=== PATIENT | male | born 1975 | race Caucasian/White ===

== ENCOUNTER 2020-10-17 16:33 | Emergency (ER) | payer SELFPAY ==
--- OUTSIDE RECORDS SUMMARY | 2020-10-17 16:36 | XMS REPORT | Continuity of Care Document ---
:1975 Author Organization [facility] t Address [address] [place] [address] [place] [id number] Care Team Providers Name Role Phone Devorah CAMARGO Attending Clinician Unavailable TIFFANIE Attending Clinician Unavailable Harley Rodriguez Attending Clinician Elizabeth Salinas DO Attending Clinician Dianna Cabrera Attending Clinician Payers Payer Name Policy Type Policy Number Effective Date Expiration Date Dianna alcazar [facility] [id number] 2020 [facility] SELF-PAYSELF- 00:00:00 PAY UNSCREENEDxxx [id number] [place] [address] Problems Condition Condition Condition Status Onset Resolution Last Treating Co mments Source Name Details Category Date Date Treatment Clinician Date Psychosis Psychosis Disease Active [facility] Health Mood Mood Disease Active [facility] disorder disorder Health Allergies, Adverse Reactions, Alerts This patient has no known allergies or adverse reactions. Social History Social Habit Start Date Stop Date Quantity Comments Source Sex Assigned At [facility] Health Medications Ordered Filled Start Stop Current Ordering Indication Dosage Frequency Signature Comments Components Source Medication Medication Date Date Medication? Clinician (SIG) Name Name FLUoxetine Yes Psychosis, 20mg QD Take 1 [facility] (PROZAC) 20 4-20 unspecified capsule by [facility] mg capsule 00:00: psychosis mouth 00 type daily. QUEtiapine Yes Psychosis, 100mg Take 1 Pratik (SEROQUEL) 4-20 unspecified tablet by [facility] 100 mg 00:00: psychosis mouth at tablet 00 type bedtime nightly. Vital Signs Vital Name Observation Time Observation Value Comments Source Systolic blood pressure 2020-08-17 07:00:00 125 mm[Hg] [facility] Diastolic blood pressure 2020-08-17 07:00:00 95 mm[Hg] [facility] Heart rate 2020-08-17 07:00:00 91 /min [place] [facility] Body temperature 2020-08-17 07:00:00 37 Clementina Abiodun is [facility] Respiratory rate 2020-08-17 07:00:00 17 /min Abiodun is [facility] Oxygen saturation in 2020-08-17 07:00:00 99 /min [facility] Arterial blood by Pulse oximetry Procedures Procedure Date / Time Performed Performing Clinician [facility] e CONSULT CLINICAL CASE 2020-08-17 09:04:51 Bulmaro Ghosh [facility] MANAGEMENT (RN/SW) 12 LEAD EKG 2020-08-16 18:08:10 [facility] SARS-COV-2, FLU A/B, RSV 2020-08-16 17:53:00 Bulmaro tushar [facility] CORONAVIRUS, COVID-19, JENNA 2020-08-16 17:53:00 [facility]ushar [facility] CBC/DIFF 2020-08-16 17:52:00 Bulmaro tushar [facility] BASIC METABOLIC PANEL 2020-08-16 17:52:[facility] CBC 2020-08-16 17:52:00 [facility] Plan of Care Planned Activity Planned Date Details Comments Source Future Scheduled Test 2021-01-28 00:00:00 IMM Influenza [facility] Seasonal Jan to June (>/= 19 yrs) [code = IMM Influenza Seasonal Jan to June (>/= 19 yrs)] Future Scheduled Test 1989 00:00:00 COVID-19 Vaccine (1) [facility] [code = COVID-19 Vaccine (1)] Encounters Start End Encounter Admission Attending Care Care Encounter Source Date/Time Date/Time Type Type Clinicians Facility Department ID 2020-08-26 2020-08-26 Outpatient [facility] [id number] [place] 00:00:00 00:00:00 [facility] 2020-08-16 2020-08-17 Emergency LISA MORENO [facility] [id number] [place] 13:13:00 11:55:00 Health 2020-05-19 2020-05-19 Emergency Celis, [facility] [id number] 17:56:00 18:45:00 Daisy Dan [id number] [place] [id number] [place] [id number] 2020-05-18 2020-05-18 Emergency [facility] [id number] 17:52:00 19:15:00 Lucy Dan [id number] [place] [id number] [place] [id number] 2019-12-16 2019-12-16 Emergency [facility] [id number] 10:37:00 11:42:00 Pepper [place] [id number] [place] [id number] [place] [id number] Results Test Description Test Time Test Comments Results Result Comments Source Coronavirus, CoVID-19, JENNA 2020-08-16 23:01:00 Test Item Value Reference Range Interpretation Comme nts COVID-19 (SARS-COV-2) Not Detected Not Detected INTERP RETATION: No (test code = 47343-4) detect able levels of SARS-CoV-2 Tommie navirus (COVID-19) were present in this patient 's sample by this test. A not detected result does not exclude the pos sibility of active infec tion with this virus due to other factors that ma y affect the results suc h as a poorly collecte d sample, viral titers be low the limit of detect ion of the assay, and the infrequent poss ibility of inhibitors i n the sample. This re sult should be inter preted in conjunction wit h clinical, radio graphic, and other labor atory findings and sh ould not be used as the sole indicator of ac tive infection with SARS-CoV-2 Tommie navirus (COVID-19). ALESSANDRA (test code = ALESSANDRA) COMMENT: This Hologic Aptima SARS-CoV-2 molecular diagnostic assay utilizes Reinforcer Mediated Amplification (TMA) technology to rapidly detect the SARS-CoV-2 (COVID-19) virus from respiratory samples. In accordance with the FDA's guidance document "Policy for Diagnostic Tests for Coronavirus Disease-2019 during the Public Health Emergency", this test was developed, and its performance characteristics were verified by the [facility] molecular diagnostics laboratory and is authorized for clinical diagnostic use. This laboratory is certified under the Clinical Laboratory Improvement Amendments (CLIA) as qualified to perform high complexity clinical laboratory testing. Lab Interpretation (test Normal code = 75126-0) [facility] Metabolic [id number] 18:50:00 Test Item Value Reference Range Interpretation Comments Sodium (test code = 139 mmol/L 285-010 1612-2) Potassium (test code = 4.2 mmol/L 3.5-5.1 2823-3) Chloride (test code = 103 mmol/L 98-107 2075-0) CO2 (test code = 28 mmol/L 21-31 96621259) Urea Nitrogen (test 17.0 mg/dL 7-25 code = 51509810) Creatinine (test code = 0.9 mg/dL 0.7-1.3 98077588) Glucose (test code = 106 mg/dL 70-110 65879484) Calcium (test code = 8.8 mg/dL 8.6-10.3 77495660) eGFR If non- Am >90 See_Comment [Aut omated message] (test code = 00043739) The s ystem which generated this result transmit nina reference range : >=90 mL/min/1.7 3 m2. The reference r sage was not used to interpret this result as normal/abnormal . Anion Gap (test code = 8 mmol/L 5-16 61396741) Lab Interpretation Normal (test code = 70945-3) [facility]/[id number] 18:24:00 Test Item Value Reference Range Interpretation Comments WBC (test code = 6690-2) 6.2 K/uL 4.5-12 RBC (test code = 789-8) 4.23 See_Comment L [Au tomated message] The system Voter Gravity[employer] h generated this result transmit nina reference range : 4.60 - 6.20 M/u L. The reference r sage was not used to interpret this result as normal/abnormal . Hemoglobin (test code = 13.0 g/dL 14-18 L 718-7) Hematocrit (test code = 36.7 % 40-54 L 4544-3) MCV (test code = 787-2) 86.8 fL 82-92 MCH (test code = 785-6) 30.7 pg 27-31 MCHC (test code = 786-4) 35.4 g/dL 32-36 RDW (test code = 39.1 fL 35.1-43.9 66841-5) Platelet (test code = 283 K/uL 150-400 777-3) Mean Platelet Volume 9.8 fL 9.4-12.4 (test code = 95790-7) Percent NRBC (test code 0.0 % = 20498574) Neutrophil (test code = 41.6 % 34-67.9 770-8) Lymphs (test code = 44.4 % 21.8-50 736-9) Monocytes (test code = 8.7 % 5.3-12 5905-5) Eos (test code = 713-8) 3.9 % 0.8-5 Basos (test code = 1.1 % 0.2-1.2 706-2) Immature Granulocytes 0.3 % 0-0.5 (test code = 42781649) Neutrophils (Absolute) 2.59 K/uL 1.78-5.36 (test code = 44428681) Lymphs (Absolute) (test 2.76 K/uL 1.32-3.57 code = 82155467) Monocytes(Absolute) 0.54 K/uL 0.3-0.82 (test code = 59799933) Eos (Absolute) (test 0.24 K/uL 0.04-0.54 code = 07989109) Baso (Absolute) (test 0.07 K/uL 0.01-0.08 code = 22288133) Immature Grans (Abs) 0.02 K/uL 0-0.03 (test code = 41082071) Absolute NRBC (test code 0.00 K/uL = 33656250) Lab Interpretation (test Abnormal code = 52531-3) [place] [address] LEAD [id number] 18:08:1012 LEAD EKG FOR [facility] Test Date: [id number] Name: DAMIEN KRISHNAMURTHY Department: [id number] ID: [id number] Room: Gender: M 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
[2020-10-17 17:23] LABS: Absolute Lymphocytes (CBC) 2.8 K/uL (0.7-4.9); Basophils % 0.7 % (0-1.3); Hematocrit 35.9 % (39.6-49.0); Lymphocytes % 26.8 % (15.3-44.8); MPV 8.3 fL (7.6-11.3); RBC Red Blood Cell Count 4.02 M/uL (4.33-5.43)
[2020-10-17 17:30] LABS: Protime INR 1.18
[2020-10-17 17:47] LABS: ALT/SGPT 48 U/L (12-78); AST/SGOT 66 U/L (15-37); Albumin 3.2 g/dL (3.4-5.0); Alkaline Phosphatase 65 U/L (45-117); BUN Blood Urea Nitrogen 41 mg/dL (7-18); Bicarbonate 23 mmol/L (21-32); Bilirubin Direct 0.3 mg/dL (0-0.2); Glucose Level 100 mg/dL (74-106); Lipase 82 U/L (73-393); Potassium 3.4 mmol/L (3.5-5.1); Protein, Total 6.4 g/dL (6.4-8.2); Sodium Level 137 mmol/L (136-145); Troponin I 0.02 ng/mL (0.0-0.045)
--- NOTE | 2020-10-17 18:24 | ER ---
Nurse's Notes [facility] Name: Jos Renner Age: 44 yrs Sex: Male : 1975 Arrival Date: 10/17/2020 Time: 16:35 Bed 15 Private MD: Diagnosis: Drug abuse counseling and surveillance Presentation: 10/17 16:46 Chief complaint: EMS states: Bystander spotted patient laying down in a field. PT ss admits to taking 0.5 tablet of his mother's prescribed Vicodin and 100 mg of Seroquel when he is supposed to only take 50 mg. Pt denies SI/ HI but states he has been hearing, seeing and feeling things since he was 4 years old. Pt states that he has been walking and just laid down because his feet hurt. Coronavirus screen: Client denies travel out of the [place] in the last 14 days. Ebola Screen: Patient denies exposure to infectious person. Patient denies travel to an Ebola-affected area in the 21 days before illness onset. Initial Sepsis Screen: Does the patient meet any 2 criteria? No. Patient's initial sepsis screen is negative. Does the patient have a suspected source of infection? No. Patient's initial sepsis screen is negative. Risk Assessment: Do you want to hurt yourself or someone else? Patient reports no desire to harm self or others. Onset of symptoms is unknown. Care prior to arrival: Medication(s) given: Normal saline infusion, 1000 mL, IV initiated. 18 GA, in the left antecubital area, Glucose check: 102. 16:46 Method Of Arrival: EMS: [facility] 16:46 Acuity: CHILO 3 ss Historical: - Allergies: 16:54 No Known Allergies; ss - Home Meds: 16:54 Seroquel Oral [Active]; ss - PMHx: 16:54 Insomnia; ss - PSHx: 16:54 R hand; ss - Immunization history:: Adult Immunizations unknown. - Social history:: Smoking status: Patient reports the use of cigarette tobacco products, smokes one pack cigarettes per day. Patient uses alcohol, only on a social basis. street drugs, cocaine, heroin, marijuana, Methamphetamine (Meth). - Family history:: not pertinent. Screenin:50 Abuse screen: Denies threats or abuse. Nutritional screening: No deficits noted. vg1 Tuberculosis screening: No symptoms or risk factors identified. Fall Risk No fall in past 12 months (0 pts). No secondary diagnosis (0 pts). IV access (20 points). Ambulatory Aid- None/Bed Rest/Nurse Assist (0 pts). Gait- Normal/Bed Rest/Wheelchair (0 pts) Mental Status- Oriented to own ability (0 pts). Total Cesar Fall Scale indicates No Risk (0-24 pts). Assessment: 16:48 General: Appears in no apparent distress. uncomfortable, Behavior is cooperative, vg1 anxious. Pain: Complains of pain in pt states 'whole body' Pain currently is 5 out of 10 on a pain scale. Neuro: Level of Consciousness is awake, alert, obeys commands, Oriented to person, place, time, situation. Cardiovascular: Patient's skin is warm and dry. Respiratory: Airway is patent Respiratory effort is even, unlabored. GI: Reports nausea, Patient currently denies diarrhea, vomiting. : No signs and/or symptoms were reported regarding the genitourinary system. EENT: No signs and/or symptoms were reported regarding the EENT system. Derm: Skin is intact, is healthy with good turgor. Musculoskeletal: Circulation, motion, and sensation intact. 16:48 Reassessment: Pt denies SI and HI. vg1 18:02 Reassessment: Patient appears in no apparent distress at this time. No changes from vg1 previously documented assessment. Patient and/or family updated on plan of care and expected duration. Pain level reassessed. Patient is alert, oriented x 3, equal unlabored respirations, skin warm/dry/pink. 19:30 Reassessment: Patient appears in no apparent distress at this time. No changes from vg1 previously documented assessment. Patient and/or family updated on plan of care and expected duration. Pain level reassessed. Patient is alert, oriented x 3, equal unlabored respirations, skin warm/dry/pink. Vital Signs: 16:46 BP 130 / 87; Pulse 92; Resp 12; Temp 98.9; Pulse Ox 97% on R/A; Weight 72.57 kg; Height ss 5 ft. 11 in. (180.34 cm); Pain 0/10; 16:49 BP 130 / 87; Pulse 90; Resp 18; Pulse Ox 99% on R/A; vg1 17:00 BP 115 / 83; Pulse 88; Resp 12; Pulse Ox 100% on R/A; vg1 18:05 BP 130 / 82; Pulse 88; Resp 18; Pulse Ox 100% on R/A; vg1 19:00 BP 127 / 84; Pulse 90; Resp 18; Pulse Ox 100% on R/A; vg1 16:46 Body Mass Index 22.32 (72.57 kg, 180.34 cm) ED Course: 16:35 Patient arrived in ED. ds1 16:36 Oma Arreaga MD is Attending Physician. ma2 16:44 Deana George RN is Primary Nurse. vg1 16:51 Patient has correct armband on for positive identification. Placed in gown. Bed in low vg1 position. Call light in reach. Side rails up X2. 16:52 Triage completed. ss 16:54 Arm band placed on right wrist. ss 17:08 Maintain EMS IV. Dressing intact. Good blood return noted. Site clean \T\ dry. Gauge \T\ vg 1 site: 18g in Left AC. 19:19 Primary Nurse role handed off by Deana George, SHERMAN mw2 19:22 Deana George RN is Primary Nurse. vg1 19:31 No provider procedures requiring assistance completed. IV discontinued, intact, vg1 bleeding controlled, No redness/swelling at site. Pressure dressing applied. Administered Medications: No medications were administered Outcome: 18:24 Discharge ordered by . ma2 19:31 Discharged to home ambulatory. vg1 19:31 Condition: good 19:31 Discharge instructions given to patient, Instructed on discharge instructions, follow up and referral plans. Demonstrated understanding of instructions, follow-up care. 19:31 Patient left the ED. vg1 Signatures: Silvia Macias ds1 Arlet Ayoub RN RN Oma Arreaga MD MD ma2 Melissa Ramon mw2 Deana George RN RN vg1
--- NOTE | 2020-10-17 18:24 | EDPHYS ---
Physician Documentation [facility] Name: Jos Renner Age: 44 yrs Sex: Male : 1975 Arrival Date: 10/17/2020 Time: 16:35 Bed 15 Private MD: ED Physician Oma Arreaga HPI: 10/17 17:47 This 44 yrs old Male presents to ER via EMS with complaints of Drowsy. ma2 17:47 Onset: The symptoms/episode began/occurred gradually, 2 hour(s) ago. Associated signs ma2 and symptoms: Pertinent negatives: chest pain, delusions, fever. Severity of symptoms: At their worst the symptoms were mild in the emergency department the symptoms are unchanged. The patient has not experienced similar symptoms in the past. The patient has experienced similar episodes in the past. s/p cocain use . Historical: - Allergies: 16:54 No Known Allergies; ss - Home Meds: 16:54 Seroquel Oral [Active]; ss - PMHx: 16:54 Insomnia; ss - PSHx: 16:54 R hand; ss - Immunization history:: Adult Immunizations unknown. - Social history:: Smoking status: Patient reports the use of cigarette tobacco products, smokes one pack cigarettes per day. Patient uses alcohol, only on a social basis. street drugs, cocaine, heroin, marijuana, Methamphetamine (Meth). - Family history:: not pertinent. ROS: 17:47 Constitutional: Negative for fever, chills, and weight loss. ma2 17:47 All other systems are negative. Exam: 17:47 Constitutional: This is a well developed, well nourished patient who is awake, alert, ma2 and in no acute distress. Neck: Trachea midline, no thyromegaly or masses palpated, and no cervical lymphadenopathy. Supple, full range of motion without nuchal rigidity, or vertebral point tenderness. No Meningismus. Chest/axilla: Normal chest wall appearance and motion. Nontender with no deformity. No lesions are appreciated. Cardiovascular: Regular rate and rhythm with a normal S1 and S2. No gallops, murmurs, or rubs. Normal PMI, no JVD. No pulse deficits. Respiratory: Lungs have equal breath sounds bilaterally, clear to auscultation and percussion. No rales, rhonchi or wheezes noted. No increased work of breathing, no retractions or nasal flaring. Abdomen/GI: Soft, non-tender, with normal bowel sounds. No distension or tympany. No guarding or rebound. No evidence of tenderness throughout. Skin: Warm, dry with normal turgor. Normal color with no rashes, no lesions, and no evidence of cellulitis. MS/ Extremity: Pulses equal, no cyanosis. Neurovascular intact. Full, normal range of motion. Neuro: Awake and alert, GCS 15, oriented to person, place, time, and situation. Cranial nerves II-XII grossly intact. Motor strength 5/5 in all extremities. Sensory grossly intact. Cerebellar exam normal. Normal gait. Vital Signs: 16:46 BP 130 / 87; Pulse 92; Resp 12; Temp 98.9; Pulse Ox 97% on R/A; Weight 72.57 kg; Height ss 5 ft. 11 in. (180.34 cm); Pain 0/10; 16:49 BP 130 / 87; Pulse 90; Resp 18; Pulse Ox 99% on R/A; vg1 17:00 BP 115 / 83; Pulse 88; Resp 12; Pulse Ox 100% on R/A; vg1 18:05 BP 130 / 82; Pulse 88; Resp 18; Pulse Ox 100% on R/A; vg1 19:00 BP 127 / 84; Pulse 90; Resp 18; Pulse Ox 100% on R/A; vg1 16:46 Body Mass Index 22.32 (72.57 kg, 180.34 cm) ss MDM: 16:36 Patient medically screened. ma2 17:47 Differential diagnosis: drug withdrawal. depression. Differential diagnosis: drug use. ma2 Data reviewed: vital signs, nurses notes. Counseling: I had a detailed discussion with the patient and/or guardian regarding: the historical points, exam findings, and any diagnostic results supporting the discharge/admit diagnosis, the presence of at least one elevated blood pressure reading (>120/80) during this emergency department visit, the need for outpatient follow up. Response to treatment: the patient's symptoms have markedly improved after treatment. ED course: patient is awake alert talking normally . 10/17 16:37 Order name: Basic Metabolic Panel; Complete Time: 18:22 ma2 10/17 16:37 Order name: CBC with Diff; Complete Time: 17:48 ma2 10/17 16:37 Order name: Hepatic Function; Complete Time: 18:22 [facility] 10/17 16:37 Order name: Lipase; Complete Time: 18:22 [facility] 10/17 16:39 Order name: Troponin (emerg Dept Use Only) [facility] 10/17 16:44 Order name: Acetaminophen [facility] 10/17 16:44 Order name: ETOH Level [facility] 10/17 16:44 Order name: PT-INR [facility] 10/17 16:44 Order name: Ptt, Activated [facility] 10/17 16:44 Order name: Salicylate; Complete Time: 18:22 [facility] 10/17 16:44 Order name: Alcohol Serum/Plasma; Complete Time: 17:48 EDMS 10/17 16:37 Order name: IV Saline Lock; Complete Time: 17:08 [facility] 10/17 16:37 Order name: Labs collected and sent; Complete Time: 17:08 [facility] 10/17 16:37 Order name: EKG - Nurse/Tech; Complete Time: 17:08 [facility] 10/17 16:44 Order name: EKG; Complete Time: 16:44 ri2 10/17 16:44 Order name: Suicide Screening ([place]); Complete Time: 17:08 [facility] 10/17 16:44 Order name: Protime (+INR); Complete Time: 17:48 EDMS 10/17 16:44 Order name: PTT, Activated Partial Thromb; Complete Time: 17:48 EDMS 10/17 17:17 Order name: Troponin I; Complete Time: 18:22 EDMS 10/17 17:17 Order name: Acetaminophen Level; Complete Time: 18:22 EDMS Administered Medications: No medications were administered Disposition: 10/17/20 18:24 Discharged to Home. Impression: Drug abuse counseling and surveillance. - Condition is Fair. - Discharge Instructions: What You Need To Know About Illegal Drug Use and Dependence, Youth. - Medication Reconciliation Form, Thank You Letter, Antibiotic Education, Prescription Opioid Use form. - Follow up: Private Physician; When: Tomorrow; Reason: If symptoms return, Continuance of care. Signatures: Dispatcher [employer] EDMS Arlet Ayoub RN RN ss Oma Arreaga MD MD ri2 Deana George RN RN 1 Corrections: (The following items were deleted from the chart) 17:17 16:40 Troponin (Emerg Dept Use Only) ordered. EDMS EDMS 17:17 16:44 Acetaminophen Level ordered. EDNJ EDMS 19:31 18:24 10/17/2020 18:24 Discharged to Home. Impression: Drug abuse counseling and vg1 surveillance. Condition is Fair. Forms are Medication Reconciliation Form, Thank You Letter, Antibiotic Education, Prescription Opioid Use. Follow up: Private Physician; When: Tomorrow; Reason: If symptoms return, Continuance of care. ma2
[2020-10-17 19:45] VITALS: TEMP 98.9
[2020-10-17 19:48] VITALS: O2SAT 100
[2020-10-17 19:52] VITALS: BP 127/84
--- NOTE | 2020-10-18 08:24 | EKG ---
Test Date: 2020-10-17 Test Time: 16:59:23 Mediation Commissioner: KIM MEASUREMENT RESULTS: Intervals: Rate: 88 TN: 132 QRSD: 104 QT: 394 QTc: 476 [place]: P: 78 TN: 132 QRS: 87 T: 57 INTERPRETIVE STATEMENTS: Normal sinus rhythm Normal ECG No previous ECG available for comparison Electronically Signed On 10-18-20 08:22:59 CDT by Foster Owusu
== END 2020-10-17 19:31 | disposition home or self-care (01) ==
LOC: ER 16:33
DX: R40.0 Somnolence (principal); Z71.51 Drug abuse counseling and surveillance of drug abuser; F17.210 Nicotine dependence, cigarettes, uncomplicated
CPT/HCPCS: 36415; 80048; 80076; 80320; 80329; 83690; 84484; 85025; 85610; 85730; 93005; 99283

== ENCOUNTER 2020-10-18 12:07 | Emergency (ER) | payer SELFPAY ==
--- OUTSIDE RECORDS SUMMARY | 2020-10-18 12:10 | XMS REPORT | Continuity of Care Document ---
:1975 Author Organization [facility] t Address [address] [place] [address] Care Team Providers Name Role Phone Devorah CAMARGO Attending Clinician Unavailable TIFFANIE Attending Clinician Unavailable Harley Rodriguez Attending Clinician Elizabeth Salinas DO Attending Clinician Sisi PATHAK S Attending Clinician Payers Payer Name Policy Type Policy Number Effective Date Expiration Date S ottoniel [facility] [id number] 2020 Christie Wesabe SELF-PAYSELF- 00:00:00 PAY UNSCREENEDxxx [id number] [phone] [place] [address] Problems Condition Condition Condition Status Onset Resolution Last Treating Co mments Source Name Details Category Date Date Treatment Clinician Date Psychosis Psychosis Disease Active [facility] Mood Mood Disease Active Christie disorder disorder [...] FLUoxetine Yes Psychosis, 20mg QD Take 1 eblizz (PROZAC) 20 4-20 unspecified capsule by [facility] mg capsule 00:00: psychosis mouth 00 type daily. QUEtiapine Yes Psychosis, 100mg Take 1 eblizz (SEROQUEL) 4-20 unspecified tablet by [facility] 100 mg 00:00: psychosis mouth at tablet 00 type bedtime nightly. Vital Signs Vital Name Observation Time Observation Value Comments Source Systolic blood pressure 2020-08-17 07:00:00 125 mm[Hg] [facility] Diastolic blood pressure 2020-08-17 07:00:00 95 mm[Hg] [facility] Heart rate 2020-08-17 07:00:00 91 /min [place] Anjana ealt Body temperature 2020-08-17 07:00:00 37 Clementina Abiodun is [facility] Respiratory rate 2020-08-17 07:00:00 17 /min Abiodun is [facility] Oxygen saturation in 2020-08-17 07:00:00 99 /min [facility] Arterial blood by Pulse oximetry Procedures Procedure Date / Time Performed Performing Clinician [facility] e CONSULT CLINICAL CASE 2020-08-17 09:04:51 Bulmaro Ghosh [facility] MANAGEMENT (RN/SW) 12 LEAD EKG 2020-08-16 18:08:10 Bulmaro Ghosh [facility] SARS-COV-2, FLU A/B, RSV 2020-08-16 17:53:00 Bulmaro tushar [facility] CORONAVIRUS, COVID-19, JENNA 2020-08-16 17:53:00 [facility] CBC/DIFF 2020-08-16 17:52:00 Bulmaro tushar [facility] BASIC METABOLIC PANEL 2020-08-16 17:52:00 Bulmaro tushar [facility] CBC 2020-08-16 17:52:00 [facility] Plan of Care Planned Activity Planned Date Details Comments Source Future Scheduled Test 2021-01-28 00:00:00 IMM Influenza [facility] Seasonal Jan to June (>/= 19 yrs) [code = IMM Influenza Seasonal Jan to June (>/= 19 yrs)] Future Scheduled Test 1989 00:00:00 COVID-19 Vaccine (1) [facility] [code = COVID-19 Vaccine (1)] Encounters Start End Encounter Admission Attending Care Care Encounter Source Date/Time Date/Time Type Type Clinicians Facility Department ID 2020-08-26 2020-08-26 Outpatient MARY JO [facility] [id number] [place] 00:00:00 00:00:00 [facility] 2020-08-16 2020-08-17 Emergency LISA MORENO [facility] [id number] [place] 13:13:00 11:55:00 Health 2020-05-19 2020-05-19 Emergency Celis, [facility] [id number] 17:56:00 18:45:00 Daisy Dan [id number] [place] [id number] [place] [address] [id number] 2020-05-18 2020-05-18 [facility] [id number] 17:52:00 19:15:00 Lucy Dan [id number] [place] [id number] [place] [address] [id number] 2019-12-16 2019-12-16 Emergency [facility] [id number] 10:37:00 11:42:00 Pepper Dan [id number] [place] [id number] [place] [address] [id number] Results Test Description Test Time Test Comments Results Result Comments Source Coronavirus, CoVID-19, JENNA 2020-08-16 23:01:00 Test Item Value Reference Range Interpretation Comme nts COVID-19 (SARS-COV-2) Not Detected Not Detected INTERP RETATION: No (test code = 16989-4) detect able levels of SARS-CoV-2 Tommie navirus [...] Hologic Aptima SARS-CoV-2 molecular diagnostic assay utilizes Candy Vendor Mediated Amplification (TMA) technology to rapidly detect the SARS-CoV-2 (COVID-19) virus from respiratory samples. In accordance with the FDA's guidance document "Policy for Diagnostic Tests for Coronavirus Disease-2019 during the Public Health Emergency", this test was developed, and its performance characteristics were verified by the [facility] molecular diagnostics laboratory and is authorized for clinical diagnostic use. This laboratory is certified under the Clinical Laboratory Improvement Amendments (CLIA) as qualified to perform high complexity clinical laboratory testing. Lab Interpretation (test Normal code = 55310-1) [facility] Metabolic [id number] 18:50:00 Test Item Value Reference Range Interpretation Comments Sodium (test code = 139 mmol/L 289-674 9161-2) Potassium (test code = 4.2 mmol/L 3.5-5.1 2823-3) Chloride (test code = 103 mmol/L 98-107 2075-0) CO2 (test code = 28 mmol/L 21-31 41464963) Urea Nitrogen (test 17.0 mg/dL 7-25 code = 81109386) Creatinine (test code = 0.9 mg/dL 0.7-1.3 77533249) Glucose (test code = 106 mg/dL 70-110 28064124) Calcium (test code = 8.8 mg/dL 8.6-10.3 28662567) eGFR If non- Am >90 See_Comment [Aut omated message] (test code = 78141507) The s ystem which generated this result transmit nina reference range : >=90 mL/min/1.7 3 m2. The reference r sage was not used to interpret this result as normal/abnormal . Anion Gap (test code = 8 mmol/L 5-16 94083815) Lab Interpretation Normal (test code = 44821-1) [facility][id number] 18:24:00 Test Item Value Reference Range Interpretation Comments WBC (test code = 6690-2) 6.2 K/uL 4.5-12 RBC (test code = 789-8) 4.23 See_Comment L [Au tomated message] The system Aleaic h generated this result transmit nina reference [...] RDW (test code = 39.1 fL 35.1-43.9 63561-1) Platelet (test code = 283 K/uL 150-400 777-3) Mean Platelet Volume 9.8 fL 9.4-12.4 (test code = 13030-9) Percent NRBC (test code 0.0 % = 75442133) Neutrophil (test code = 41.6 % 34-67.9 770-8) Lymphs (test code = 44.4 % 21.8-50 736-9) Monocytes (test code = 8.7 % 5.3-12 5905-5) Eos (test code = 713-8) 3.9 % 0.8-5 Basos (test code = 1.1 % 0.2-1.2 706-2) Immature Granulocytes 0.3 % 0-0.5 (test code = 97323503) Neutrophils (Absolute) 2.59 K/uL 1.78-5.36 (test code = 66433002) Lymphs (Absolute) (test 2.76 K/uL 1.32-3.57 code = 33747713) Monocytes(Absolute) 0.54 K/uL 0.3-0.82 (test code = 32358754) Eos (Absolute) (test 0.24 K/uL 0.04-0.54 code = 06962122) Baso (Absolute) (test 0.07 K/uL 0.01-0.08 code = 46555234) Immature Grans (Abs) 0.02 K/uL 0-0.03 (test code = 47506934) Absolute NRBC (test code 0.00 K/uL = 64734726) Lab Interpretation (test Abnormal code = 77321-3) [place] [address] LEAD [id number] 18:08:1012 LEAD EKG FOR [facility] Test Date: [id number] Name: DAMIEN KRISHNAMURTHY Department: [id number] ID: [id number] Room: Gender: M Camp Coordinator: [id number] MISTYDOB: 1975 Requested By: PHAN Prattder Number: [id number] Reading MD: Natalie Salter MeasurementsIntervals [place] Rate: 74 P: 75PR: 145 QRS: 87QRSD: 105 T: 76QT: 375 QTc: 417 Interpretive StatementsSINUS Gwendolyn [facility] WITH SINUS ARRHYTHMIAElectronically Signed On 08-16-2020 18:38:03 CDT by [facility]
[2020-10-18 12:58] LABS: Absolute Lymphocytes (CBC) 2.2 K/uL (0.7-4.9); Basophils % 0.6 % (0-1.3); Hematocrit 34.9 % (39.6-49.0); Lymphocytes % 27.9 % (15.3-44.8); MPV 8.5 fL (7.6-11.3)
[2020-10-18 13:02] LABS: Protime INR 1.06
[2020-10-18] MEDS ORDERED: NA CHLORIDE 0.9% 1,000 ML ONE (13:07)
[2020-10-18 13:32] LABS: ALT/SGPT 64 U/L (12-78); AST/SGOT 92 U/L (15-37); Albumin 3.4 g/dL (3.4-5.0); Alkaline Phosphatase 58 U/L (45-117); BUN Blood Urea Nitrogen 23 mg/dL (7-18); Bicarbonate 27 mmol/L (21-32); Bilirubin Direct 0.2 mg/dL (0-0.2); Bilirubin Total 0.7 mg/dL (0.2-1.0); Glucose Level 97 mg/dL (74-106); Potassium 3.9 mmol/L (3.5-5.1); Protein, Total 6.4 g/dL (6.4-8.2); Sodium Level 137 mmol/L (136-145)
[2020-10-18 14:38] LABS: Urine Blood Negative (Negative); Urine Glucose Negative (Negative); Urine Protein Negative (Negative); Urine Specific Gravity 1.015 (1.005-1.030); Urine pH 5.5 (5.0-7.0)
[2020-10-18 14:59] LABS: Barbiturates NEGATIVE (NEGATIVE); Benzodiazepines NEGATIVE (NEGATIVE); Cocaine NEGATIVE (NEGATIVE); METHAMPHETAM POSITIVE (NEGATIVE); Methadone NEGATIVE (NEGATIVE); Opiates NEGATIVE (NEGATIVE); Phencyclidine NEGATIVE (NEGATIVE); THC Cannibis POSITIVE (NEGATIVE)
--- NOTE | 2020-10-18 15:22 | EDPHYS ---
Physician Documentation [facility] Name: Jos Renner Age: 44 yrs Sex: Male : 1975 Arrival Date: 10/18/2020 Time: 12:13 Bed 18 Private MD: ED Physician Oma Arreaga HPI: 10/18 12:59 This 44 yrs old Male presents to ER via EMS with complaints of Hearing voices.pm1 12:59 Onset: The symptoms/episode began/occurred yesterday. Past psychiatric history: Prior pm1 diagnosis: insomnia, Psychiatric medications include: Seroquel. Associated signs and symptoms: Pertinent positives; hallucinations, substance abuse, Pertinent negatives: homicidal ideation, paranoia, suicide ideation. Severity of symptoms: in the emergency department the symptoms are unchanged Pain is currently a 0 / 10. The patient has been recently seen at the [facility] Emergency Department, yesterday, for similar complaints labs were performed, dx substance abuse. Historical: - Allergies: 12:20 No Known Allergies; iw - Home Meds: 12:20 Seroquel Oral [Active]; iw - PMHx: 12:20 insomnia; iw - PSHx: 12:20 R hand; iw - Immunization history:: Client reports having NOT received the Covid vaccine. - Social history:: Smoking status: Patient reports the use of cigarette tobacco products, smokes one-half pack cigarettes per day, Patient uses alcohol, on a daily basis. street drugs, marijuana, Methamphetamine (Meth). ROS: 12:59 Constitutional: Negative for fever, chills, and weight loss, Cardiovascular: Negative pm1 for chest pain, palpitations, and edema, Respiratory: Negative for shortness of breath, cough, wheezing, and pleuritic chest pain, Abdomen/GI: Negative for abdominal pain, nausea, vomiting, diarrhea, and constipation, Back: Negative for injury and pain, MS/Extremity: Negative for injury and deformity, Skin: Negative for injury, rash, and discoloration, Neuro: Negative for headache, weakness, numbness, tingling, and seizure. 12:59 Psych: Positive for drug dependence, auditory hallucinations, insomnia, Negative for visual hallucinations, suicide gesture, suicidal ideation. 12:59 All other systems are negative. Exam: 12:59 Constitutional: This is a well developed, well nourished patient who is awake, alert, pm1 and in no acute distress. Head/Face: Normocephalic, atraumatic. 12:59 Back: No spinal tenderness. No costovertebral tenderness. Full range of motion. 12:59 Skin: Warm, dry with normal turgor. Normal color with no rashes, no lesions, and no evidence of cellulitis. MS/ Extremity: Pulses equal, no cyanosis. Neurovascular intact. Full, normal range of motion. 12:59 Eyes: Exam is negative for acute changes, Extraocular movements: intact throughout, Conjunctiva: no acute changes, no injection, Sclera: no acute changes, icterus, is not appreciated. 12:59 ENT: Mouth: Lips: normal, Oral mucosa: normal, pink and intact, moist. 12:59 Cardiovascular: Exam negative for acute changes, Rate: normal, Rhythm: regular, Pulses: no pulse deficits are appreciated. 12:59 Respiratory: Exam negative for acute changes, respiratory distress, shortness of breath, Breath sounds: are clear throughout. 12:59 Abdomen/GI: Inspection: abdomen appears normal, Palpation: abdomen is soft and non-tender, in all quadrants. 12:59 Neuro: Exam negative for acute changes, Orientation: is normal, Mentation: is normal, Motor: is normal, moves all fours. Vital Signs: 12:16 BP 142 / 80; Pulse 76; Resp 16 S; Temp 98.6; Pulse Ox 99% on R/A; Weight 70.31 kg; iw Height 5 ft. 11 in. (180.34 cm); 13:23 BP 119 / 77; Pulse 79; Resp 16 S; Pulse Ox 100% on R/A; ca1 14:31 BP 125 / 92; Pulse 61; Resp 16 S; Pulse Ox 100% on R/A; ca1 15:15 BP 130 / 91; Pulse 67; Resp 15 S; Pulse Ox 100% on R/A; ca1 12:16 Body Mass Index 21.62 (70.31 kg, 180.34 cm) iw MDM: 12:18 Patient medically screened. pm1 15:20 Data reviewed: vital signs. Data interpreted: Pulse oximetry: on room air is 100 %. pm1 Interpretation: normal. Counseling: I had a detailed discussion with the patient and/or guardian regarding: the historical points, exam findings, and any diagnostic results supporting the discharge/admit diagnosis, lab results, the need for outpatient follow up, a family practitioner, a psychiatrist, to return to the emergency department if symptoms worsen or persist or if there are any questions or concerns that arise at home. 10/18 12:32 Order name: Acetaminophen pm1 10/18 12:32 Order name: Basic Metabolic Panel pm1 10/18 12:32 Order name: CBC with Diff; Complete Time: 13:04 pm1 10/18 12:32 Order name: ETOH Level; Complete Time: 13:42 pm1 10/18 12:32 Order name: Hepatic Function; Complete Time: 13:42 pm1 10/18 12:32 Order name: PT-INR; Complete Time: 13:04 pm1 10/18 12:32 Order name: Ptt, Activated; Complete Time: 13:04 pm1 10/18 12:32 Order name: Salicylate; Complete Time: 14:11 pm1 10/18 12:32 Order name: Urine Drug Screen; Complete Time: 15:18 pm1 10/18 12:32 Order name: EKG; Complete Time: 12:33 pm1 10/18 12:32 Order name: Acetaminophen Level; Complete Time: 13:42 EDMS 10/18 12:32 Order name: Basic Metabolic Panel; Complete Time: 13:42 EDMS 10/18 14:38 Order name: Urine Dipstick-Ancillary; Complete Time: 14:51 EDMS 10/18 12:32 Order name: EKG - Nurse/Tech; Complete Time: 13:23 pm1 10/18 12:32 Order name: IV Saline Lock; Complete Time: 12:47 pm1 10/18 12:32 Order name: Labs collected and sent; Complete Time: 12:47 pm1 10/18 12:32 Order name: Urine Dipstick-Ancillary (obtain specimen); Complete Time: 14:38 pm1 Administered Medications: 12:47 Drug: NS 0.9% 1000 ml Route: IV; Rate: 1000 ml; Site: right antecubital; ca1 14:00 Follow up: Urine output 400 ml; Response: No adverse reaction; IV Status: Completed ca1 infusion; IV Intake: 1000ml Disposition: 10/18/20 15:22 Discharged to Home. Impression: Other stimulant abuse - methamphetamines, Cannabis abuse. - Condition is Stable. - Discharge Instructions: Cannabis Use Disorder, Stimulant Use Disorder-Methamphetamines. - Medication Reconciliation Form, Thank You Letter, Antibiotic Education, Prescription Opioid Use form. - Follow up: Emergency Department; When: As needed; Reason: Worsening of condition. Follow up: Private Physician; When: 2 - 3 days; Reason: Recheck today's complaints, Continuance of care, Re-evaluation by your physician. - Problem is new. - Symptoms have improved. Signatures: Dispatcher [employer] EDMalu Vazquez RN RN Rob Garces NP DISPUTE RESOLUTION ANALYST pm1 Daisy Gonsalez RN RN ca1 Corrections: (The following items were deleted from the chart) 12:48 12:32 Suicide Screening ([place]) ordered. pm1 ca1 15:52 15:22 10/18/2020 15:22 Discharged to Home. Impression: Other stimulant abuse - ca1 methamphetamines; Cannabis abuse. Condition is Stable. Forms are Medication Reconciliation Form, Thank You Letter, Antibiotic Education, Prescription Opioid Use. Follow up: Emergency Department; When: As needed; Reason: Worsening of condition. Follow up: Private Physician; When: 2 - 3 days; Reason: Recheck today's complaints, Continuance of care, Re-evaluation by your physician. Problem is new. Symptoms have improved. pm1
--- NOTE | 2020-10-18 15:22 | ER ---
Nurse's Notes [facility] Name: Jos Renner Age: 44 yrs Sex: Male : 1975 Arrival Date: 10/18/2020 Time: 12:13 Bed 18 Private MD: Diagnosis: Other stimulant abuse-methamphetamines;Cannabis abuse Presentation: 10/18 12:16 Chief complaint: EMS states: was found in a busy intersection, was stopping traffic, pt iw stated he was trying to get to the hospital for his follow up appointment , was seen here yesterday for drug abuse, pt states he wants to see what's wrong with his head and body , pt denies any drug use in the past three days , drinks daily. Coronavirus screen: At this time, the client does not indicate any symptoms associated with coronavirus-19. Ebola Screen: Patient negative for fever greater than or equal to 101.5 degrees Fahrenheit, and additional compatible Ebola Virus Disease symptoms Patient denies exposure to infectious person. Patient denies travel to an Ebola-affected area in the 21 days before illness onset. No symptoms or risks identified at this time. Initial Sepsis Screen: Does the patient meet any 2 criteria? No. Patient's initial sepsis screen is negative. Does the patient have a suspected source of infection? No. Patient's initial sepsis screen is negative. Risk Assessment: Do you want to hurt yourself or someone else? Patient reports no desire to harm self or others. Onset of symptoms was October 18, 2020. 12:16 Method Of Arrival: EMS: [facility] iw 12:16 Acuity: CHILO 3 iw Historical: - Allergies: 12:20 No Known Allergies; iw - Home Meds: 12:20 Seroquel Oral [Active]; iw - PMHx: 12:20 insomnia; iw - PSHx: 12:20 R hand; iw - Immunization history:: Client reports having NOT received the Covid vaccine. - Social history:: Smoking status: Patient reports the use of cigarette tobacco products, smokes one-half pack cigarettes per day, Patient uses alcohol, on a daily basis. street drugs, marijuana, Methamphetamine (Meth). Screenin:40 Abuse screen: Denies threats or abuse. Denies injuries from another. Nutritional ca1 screening: No deficits noted. Tuberculosis screening: No symptoms or risk factors identified. Fall Risk IV access (20 points). Assessment: 12:40 General: Appears in no apparent distress. comfortable, Behavior is calm, cooperative. ca1 Pain: Denies pain. Neuro: Level of Consciousness is awake, alert, obeys commands, Oriented to person, place, situation. Cardiovascular: Heart tones S1 S2 present Capillary refill < 3 seconds Patient's skin is warm and dry. Respiratory: Airway is patent Respiratory effort is even, unlabored, Respiratory pattern is regular, symmetrical, Breath sounds are clear bilaterally. GI: Abdomen is flat, non-distended, Bowel sounds present X 4 quads. Abd is soft and non tender X 4 quads. : No signs and/or symptoms were reported regarding the genitourinary system. EENT: No signs and/or symptoms were reported regarding the EENT system. Derm: Skin is intact, is healthy with good turgor, Skin is pink, warm \\T\\ dry. Musculoskeletal: Circulation, motion, and sensation intact. Capillary refill < 3 seconds. 13:23 Reassessment: Patient appears in no apparent distress at this time. Patient and/or ca1 family updated on plan of care and expected duration. Pain level reassessed. Patient is alert, oriented x 3, equal unlabored respirations, skin warm/dry/pink. 14:31 Reassessment: Patient appears in no apparent distress at this time. Patient and/or ca1 family updated on plan of care and expected duration. Pain level reassessed. Patient is alert, oriented x 3, equal unlabored respirations, skin warm/dry/pink. 15:15 Reassessment: Patient appears in no apparent distress at this time. Patient is alert, ca1 oriented x 3, equal unlabored respirations, skin warm/dry/pink. 15:49 Reassessment: Pt was not in the room for discharge. Pt left before signing discharge ca1 papers. veterinary assistant technician states, "pt left about 30 mins ago". Vital Signs: 12:16 BP 142 / 80; Pulse 76; Resp 16 S; Temp 98.6; Pulse Ox 99% on R/A; Weight 70.31 kg; iw Height 5 ft. 11 in. (180.34 cm); 13:23 BP 119 / 77; Pulse 79; Resp 16 S; Pulse Ox 100% on R/A; ca1 14:31 BP 125 / 92; Pulse 61; Resp 16 S; Pulse Ox 100% on R/A; ca1 15:15 BP 130 / 91; Pulse 67; Resp 15 S; Pulse Ox 100% on R/A; ca1 12:16 Body Mass Index 21.62 (70.31 kg, 180.34 cm) ED Course: 12:13 Patient arrived in ED. ca1 12:13 Rob Adorno NP is PHCP. pm1 12:13 Oma Arreaga MD is Attending Physician. pm1 12:15 Daisy Gonsalze RN is Primary Nurse. ca1 12:19 Triage completed. iw 12:20 Arm band placed on. iw 12:40 Patient has correct armband on for positive identification. Bed in low position. Call ca1 light in reach. Side rails up X 1. Pulse ox on. NIBP on. Warm blanket given. 12:46 Initial lab(s) drawn, by pr, sent to lab. Inserted saline lock: 20 gauge in right ca1 antecubital area, using aseptic technique. Blood collected. 15:51 No provider procedures requiring assistance completed. Pt left with IV. Notified LJ ca1 by SHERMAN Toribio. Administered Medications: 12:47 Drug: NS 0.9% 1000 ml Route: IV; Rate: 1000 ml; Site: right antecubital; ca1 14:00 Follow up: Urine output 400 ml; Response: No adverse reaction; IV Status: Completed ca1 infusion; IV Intake: 1000ml Intake: 14:00 IV: 1000ml; Total: 1000ml. ca1 Output: 14:00 Urine: 400ml; Total: 400ml. ca1 Outcome: 15:22 Discharge ordered by . pm1 15:51 Discharged to Pt left before discharged papers given and signed ca1 15:51 Condition: stable 15:51 Discharge instructions given to Pt left before discharged instructions and papers given 15:52 Patient left the ED. ca1 Signatures: Malu Salinas RN RN Rob Adorno NP ENGLISH INSTRUCTOR pm1 Daisy Gonsalez RN RN ca1
[2020-10-18 16:01] VITALS: TEMP 98.6
[2020-10-18 16:02] VITALS: O2SAT 100
[2020-10-18 16:04] VITALS: BP 125/92
--- NOTE | 2020-10-19 07:52 | EKG ---
Test Date: 2020-10-18 Test Time: 13:25:27 Table Keeper: SAMY MEASUREMENT RESULTS: Intervals: Rate: 67 NC: 132 QRSD: 110 QT: 430 QTc: 454 Echo: P: 78 NC: 132 QRS: 87 T: 77 INTERPRETIVE STATEMENTS: Normal sinus rhythm Normal ECG Compared to ECG 10/17/2020 16:59:23 No significant changes Electronically Signed On 10-19-20 07:49:09 CDT by Foster Owusu
== END 2020-10-18 15:52 | disposition home or self-care (01) ==
LOC: ER 12:07
DX: F15.10 Other stimulant abuse, uncomplicated (principal); F12.10 Cannabis abuse, uncomplicated; F17.210 Nicotine dependence, cigarettes, uncomplicated; G47.00 Insomnia, unspecified
CPT/HCPCS: 36415; 80048; 80076; 80307; 80320; 80329; 81003; 85025; 85610; 85730; 93005; 96360; 99284; J7030

== ENCOUNTER 2020-11-15 06:31 | Emergency (ER) | payer SELFPAY ==
--- OUTSIDE RECORDS SUMMARY | 2020-11-15 06:33 | XMS REPORT | Continuity of Care Document ---
:1975 Author Organization [facility] t Address [address] [place] [address] Care Team Providers Name Role Phone Devorah CAMARGO Attending Clinician Unavailable TIFFANIE Attending Clinician Unavailable Harley Rodriguez Attending Clinician Elizabeth Salinsa DO Attending Clinician Dianna Cabrera Attending Clinician Payers Payer Name Policy Type Policy Number Effective Date Expiration Date S ottoniel [facility] [id number] 2020 [place] [employer] SELF-PAYSELF- 00:00:00 PAY UNSCREENEDxxx [id number] [phone] [place] [address] Problems Condition Condition Condition Status Onset Resolution Last Treating Co mments Source Name Details Category Date Date Treatment Clinician Date Psychosis Psychosis Disease Active [facility] Mood Mood Disease Active Christie disorder disorder Health Allergies, Adverse Reactions, Alerts This patient has no known allergies or adverse reactions. Social History Social Habit Start Date Stop Date Quantity Comments Source Sex Assigned At [facility] Exposure to SARS-CoV-2 (event) Not sure [facility] Medications Ordered Filled Start Stop Current Ordering Indication Dosage Frequency Signature Comments Components Source Medication Medication Date Date Medication? Clinician (SIG) Name Name FLUoxetine Yes Psychosis, 20mg QD Take 1 EzFlop - A First of Its Kind Flip Flop (PROZAC) 20 4-20 unspecified capsule by [facility] mg capsule 00:00: psychosis mouth 00 type daily. QUEtiapine Yes Psychosis, 100mg Take 1 EzFlop - A First of Its Kind Flip Flop (SEROQUEL) 4-20 unspecified tablet by Health 100 mg 00:00: psychosis mouth at tablet 00 type bedtime nightly. Vital Signs Vital Name Observation Time Observation Value Comments Source Body height 2020-10-20 12:48:00 177.8 cm [facility] Body weight 2020-10-20 12:48:00 72.576 kg [facility] BMI 2020-10-20 12:48:00 22.96 kg/m2 [facility] Systolic blood pressure 2020-10-20 12:37:00 126 mm[Hg] [facility] Diastolic blood pressure 2020-10-20 12:37:00 87 mm[Hg] [facility] Heart rate 2020-10-20 12:37:00 119 /min [facility] Body temperature 2020-10-20 12:37:00 36.89 Clementina Abiodun is [facility] Respiratory rate 2020-10-20 12:37:00 20 /min Abiodun [facility] Oxygen saturation in 2020-10-20 12:37:00 98 /min [facility] Arterial blood by Pulse oximetry Procedures Procedure Date / Time Performed Performing Clinician Sour e CBC/DIFF 2020-10-20 13:34:00 Pablo Espinoza [facility] COMPREHENSIVE METABOLIC 2020-10-20 13:34:00 Pablo Espinoza [facility] PANEL URINALYSIS 2020-10-20 13:34:00 Pablo Espinoza [facility] CBC 2020-10-20 13:34:00 Pablo Espinoza [facility] URINALYSIS 2020-10-20 13:34:00 Pablo Espinoza [facility] 12 LEAD EKG 2020-10-20 12:40:22 Pablo Espinoza [facility] CONSULT CLINICAL CASE 2020-08-17 09:04:51 Phoenix Metcalf [facility] MANAGEMENT (RN/SW) 12 LEAD EKG 2020-08-16 18:08:10 Phoenix Metcalf [facility] SARS-COV-2, FLU A/B, RSV 2020-08-16 17:53:00 Phoenix Metcalf [facility] CORONAVIRUS, COVID-19, JENNA 2020-08-16 17:53:00 Liliana Metcalf [facility] CBC/DIFF 2020-08-16 17:52:00 Phoenix Metcalf [facility] BASIC METABOLIC PANEL 2020-08-16 17:52:00 Phoenix Metcalf [facility] CBC 2020-08-16 17:52:00 Phoenix Metcalf [facility] Plan of Care Planned Activity Planned Date Details Comments Source Future Scheduled Test 2021-01-28 00:00:00 IMM Influenza [facility] Seasonal Jan to June (>/= 19 yrs) [code = IMM Influenza Seasonal Jan to June (>/= 19 yrs)] Future Scheduled Test 1989 00:00:00 COVID-19 Vaccine (1) [facility] [code = COVID-19 Vaccine (1)] Encounters Start End Encounter Admission Attending Care Care Encounter Source Date/Time Date/Time Type Type Clinicians Facility Department ID 2020-10-20 2020-10-20 [facility] [id number] [place] 12:36:00 20:34:00 [facility] 2020-08-26 2020-08-26 [id number] [place] 00:00:00 00:00:00 [facility] 2020-08-16 2020-08-17 Emergency [facility] [id number] [place] 13:13:00 11:55:00 [facility] 2020-05-19 2020-05-19 Emergency [facility] [id number] 17:56:00 18:45:00 Daisy Dan [id number] [place] 4.2.7.2.686 [place] [address] [id number] 2020-05-18 2020-05-18 Emergency [facility] [id number] 17:52:00 19:15:00 Lucy Dan [id number] [place] 4.2.7.2.686 [place] [address] [id number] 2019-12-16 2019-12-16 [facility] [id number] 10:37:00 11:42:00 Pepper Dan [id number] [place] 4.2.7.2.686 [place] [address] [id number] Results Test Description Test Time Test Comments Results Result Comments Source Comprehensive Metab Pnl(Excludes DBIL) 2020-10-20 14:22:00 Test Item Value Reference Range Interpretation Comme nts Sodium (test code = 2951-2) 138 mmol/L 136-145 Potassium (test code = 2823-3) 4.3 mmol/L 3.5-5.1 Chloride (test code = 2075-0) 102 mmol/L 98-107 CO2 (test code = 35742287) 28 mmol/L 21-31 Glucose (test code = 62174048) 98 mg/dL 70-110 Calcium (test code = 58099588) 9.2 mg/dL 8.6-10.3 Urea Nitrogen (test code = 19.0 mg/dL 7-25 13031103) Creatinine (test code = 1.2 mg/dL 0.7-1.3 95679524) Alkaline Phosphatase (test code 73 U/L 34-104 = 68020659) ALT (test code = 36016146) 47 U/L 7-52 AST (test code = 06751530) 59 U/L 13-39 H Total Protein (test code = 6.3 g/dL 6-8.3 2885-2) eGFR If non- Am (test 66 See_Comment L [Automated message] The code = 22387490) system [facility] h generated this result transmit nina reference range: >=90 mL/ min/1.73 m2. The reference r sage was not used to interpr et this result as zeenat l/abnormal. eGFR If Am (test code = 81 See_Comment L [Automated message] The 93361536) system which ge nerated this result transmit nina reference range: >=90 mL/ min/1.73 m2. The reference r sage was not used to interpr et this result as zeenat l/abnormal. Albumin (test code = 29606-1) 3.9 g/dL 4.2-5.5 L Anion Gap (test code = 21972776) 8 mmol/L 5-16 Lab Interpretation (test code = Abnormal 04015-0) [place] [id number] 14:01:00 Test Item Value Reference Range Interpretation Comments Color (test code = Yellow Colorless, Straw, 79590721) Yellow Clarity (test code = Clear Clear 46093314) Spec [place], Ur (test 1.017 1.001-1.035 code = 98836988) pH, Ur (test code = 5.0 5.0-8.0 89939587) Protein, Ur (test code Negative Negative mg/dL = 87798178) Glucose, Ur (test code Negative Negative mg/dL = 01957324) Ketone, Ur (test code = Negative Negative mg/dL 94223778) Bilirubin, Ur (test Negative Negative mg/dL code = 65447504) Nitrite, Ur (test code Negative Negative = 27036990) Leukocyte (test code = Negative Negative mg/dL 90719118) Blood, Ur (test code = Negative Negative mg/dL 93682833) Urobilinogen, Ur (test <1.0 See_Comment [Aut omated message] code = 58169953) The system which generated this result transmit nina reference range : <1.0 EU/dL. The reference range was not used to interpret this result as normal/abnormal . Lab Interpretation Normal (test code = 26151-2) [facility]/[id number] 13:59:00 Test Item Value Reference Range Interpretation Comments WBC (test code = 6690-2) 7.6 K/uL 4.5-12 RBC (test code = 789-8) 4.47 See_Comment L [Au tomated message] The system [employer] generated this result transmit nina reference range : 4.60 - 6.20 M/u L. The reference r sage was not used to interpret this result as normal/abnormal . Hemoglobin (test code = 13.6 g/dL 14-18 L 718-7) Hematocrit (test code = 40.3 % 40-54 4544-3) MCV (test code = 787-2) 90.2 fL 82-92 MCH (test code = 785-6) 30.4 pg 27-31 MCHC (test code = 786-4) 33.7 g/dL 32-36 RDW (test code = 42.3 fL 35.1-43.9 60881-2) Platelet (test code = 282 K/uL 150-400 777-3) Mean Platelet Volume 10.0 fL 9.4-12.4 (test code = 29708-6) Percent NRBC (test code 0.0 % = 38104753) Neutrophil (test code = 55.3 % 34-67.9 770-8) Lymphs (test code = 29.8 % 21.8-50 736-9) Monocytes (test code = 11.2 % 5.3-12 5905-5) Eos (test code = 713-8) 2.2 % 0.8-5 Basos (test code = 0.8 % 0.2-1.2 706-2) Immature Granulocytes 0.7 % 0-0.5 H (test code = 26721937) Neutrophils (Absolute) 4.19 K/uL 1.78-5.36 (test code = 02508020) Lymphs (Absolute) (test 2.26 K/uL 1.32-3.57 code = 74907004) Monocytes(Absolute) 0.85 K/uL 0.3-0.82 H (test code = 85200240) Eos (Absolute) (test 0.17 K/uL 0.04-0.54 code = 28299558) Baso (Absolute) (test 0.06 K/uL 0.01-0.08 code = 79469305) Immature Grans (Abs) 0.05 K/uL 0-0.03 H (test code = 15294871) Absolute NRBC (test code 0.00 K/uL = 01469258) Lab Interpretation (test Abnormal code = 39579-9) [place] [address] LEAD [id number] 12:40:[address] 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 MeasurementsIntervals [place] Rate: 90 P: 87PR: 123 QRS: 92QRSD: 99 T: 45QT: 334 QTc: 382 Interpretive StatementsSINUSRHYTHMPOSSIBLE RIGHT ATRIAL ENLARGEMENT [0.25mV P- WAVE]BORDERLINE RIGHT AXIS DEVIATION [QRS AXIS > 90]Electronically Signed On 10-20-2020 12:50:31 CDT by Faviola Jacobs M.D.[facility]Coronavirus, CoVID- 19, [id number] 23:01:00 Test Item Value Reference Range Interpretation Comments COVID-19 Not Detected Not Detected INTERPRETATION: (SARS-COV-2) (test No detect able code = 87268-7) levels of SARS-CoV-2 Coronavirus (COVID-19) were present in this patient's sampl e by this test. A not detected result does not exclude the possibility of active infectio n with this virus due to other factors that ma y affect the results such as a poorly collected sample, viral titers below th e limit of detection of th e assay, and the infrequent possibility of inhibitors in the sample. Thi s result should b e interpreted in conjunction wit h clinical, radiographic, and other laboratory findings and should not be used as the roxie e indicator of active infectio n with SARS-CoV-2 Coronavirus (COVID-19). ALESSANDRA (test code = COMMENT: This ALESSANDRA) in[employer] SARS-CoV-2 molecular diagnostic assay utilizes [employer] Coordinator Mediated Amplification (TMA) technology to rapidly detect the SARS-CoV-2 (COVID-19) virus from respiratory samples. In accordance with the FDA's guidance document "Policy for Diagnostic Tests for Coronavirus Disease-2019 during the Public Health Emergency", this test was developed, and its performance characteristics were verified by the [facility] molecular diagnostics laboratory and is authorized for clinical diagnostic use. This laboratory is certified under the Clinical Laboratory Improvement Amendments (CLIA) as qualified to perform high complexity clinical laboratory testing. Lab Interpretation Normal (test code = 21991-3) [facility] Metabolic [id number] 18:50:00 Test Item Value Reference Range Interpretation Comments Sodium (test code = 139 mmol/L 012-914 1493-2) Potassium (test code = 4.2 mmol/L 3.5-5.1 2823-3) Chloride (test code = 103 mmol/L 98-107 2075-0) CO2 (test code = 28 mmol/L 21-31 01976198) Urea Nitrogen (test 17.0 mg/dL 7-25 code = 46333007) Creatinine (test code = 0.9 mg/dL 0.7-1.3 50540641) Glucose (test code = 106 mg/dL 70-110 73445142) Calcium (test code = 8.8 mg/dL 8.6-10.3 97448375) eGFR If non- Am >90 See_Comment [Aut omated message] (test code = 93092844) The s ystem which generated this result transmit nina reference range : >=90 mL/min/1.7 3 m2. The reference r sage was not used to interpret this result as normal/abnormal . Anion Gap (test code = 8 mmol/L 09-12 88800181) Lab Interpretation Normal (test code = 65117-1) [place] [address] LEAD [id number] 18:08:[address] 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
[2020-11-15 07:59] LABS: Absolute Lymphocytes (CBC) 1.8 K/uL (0.7-4.9); Basophils % 0.6 % (0-1.3); Hematocrit 38.8 % (39.6-49.0); Lymphocytes % 13.8 % (15.3-44.8); MPV 8.6 fL (7.6-11.3); RBC Red Blood Cell Count 4.35 M/uL (4.33-5.43)
[2020-11-15 08:03] LABS: Protime INR 1.03
[2020-11-15 08:13] LABS: ALT/SGPT 38 U/L (12-78); AST/SGOT 20 U/L (15-37); Albumin 3.7 g/dL (3.4-5.0); Alkaline Phosphatase 74 U/L (45-117); BUN Blood Urea Nitrogen 16 mg/dL (7-18); Bicarbonate 27 mmol/L (21-32); Bilirubin Direct 0.1 mg/dL (0-0.2); Bilirubin Total 0.2 mg/dL (0.2-1.0); Glucose Level 116 mg/dL (74-106); Potassium 3.9 mmol/L (3.5-5.1); Protein, Total 7.4 g/dL (6.4-8.2); Sodium Level 138 mmol/L (136-145)
[2020-11-15 08:31] LABS: Urine Blood Negative (Negative); Urine Glucose Negative (Negative); Urine Protein Negative (Negative); Urine pH 5.5 (5.0-7.0)
[2020-11-15] MEDS ORDERED: NA CHLORIDE 0.9% 1,000 ML ONE (08:50)
[2020-11-15 09:51] LABS: Barbiturates NEGATIVE (NEGATIVE); Benzodiazepines NEGATIVE (NEGATIVE); Cocaine NEGATIVE (NEGATIVE); METHAMPHETAM POSITIVE (NEGATIVE); Methadone NEGATIVE (NEGATIVE); Opiates NEGATIVE (NEGATIVE); Phencyclidine NEGATIVE (NEGATIVE); THC Cannibis POSITIVE (NEGATIVE)
--- NOTE | 2020-11-15 12:48 | EDPHYS ---
Physician Documentation [facility] Name: Jos Renner Age: 44 yrs Sex: Male : 1975 Arrival Date: 11/15/2020 Time: 06:34 Bed 16 Private MD: ED Physician Eric Merlos HPI: 11/15 07:29 This 44 yrs old Male presents to ER via Ambulatory with complaints of pm1 Overdose. 07:29 The patient presents to the emergency department after a known overdose, that was pm1 intentional. Context: Method: the patient has a confirmed or suspected ingestion, Seroquel 200 mg, Time: at 05:00, the OD/poisoning occurred at at home, Psychiatric history: the patient has a known psychiatric disorder, schizophrenia, insomnia, Previous OD/poisoning history: It is unknown if the patient has had similar previous episodes. Associated signs and symptoms: Pertinent positives: auditory hallucinations. The patient has not recently seen a physician. 07:29 Patient took the extra Seroquel because he was tired of hearing the voices and he pm1 wanted to kill himself. Historical: - Allergies: 06:59 No Known Allergies; em - Home Meds: 06:59 Seroquel Oral [Active]; em - PMHx: 06:59 insomnia; em 11/16 13:11 Schizophrenia; aa5 - Immunization history:: Adult Immunizations unknown. - Social history:: Smoking status: unknown. ROS: 11/15 07:29 Constitutional: Negative for fever, chills, and weight loss, Eyes: Negative for injury, pm1 pain, redness, and discharge, ENT: Negative for injury, pain, and discharge, Cardiovascular: Negative for chest pain, palpitations, and edema, Respiratory: Negative for shortness of breath, cough, wheezing, and pleuritic chest pain, Abdomen/GI: Negative for abdominal pain, nausea, vomiting, diarrhea, and constipation, MS/Extremity: Negative for injury and deformity, Skin: Negative for injury, rash, and discoloration, Neuro: Negative for headache, weakness, numbness, tingling, and seizure. Psych: Positive for drug dependence, auditory hallucinations, insomnia, suicide gesture, suicidal ideation. Exam: 07:29 Constitutional: This is a well developed, well nourished patient who is awake, alert, pm1 and in no acute distress. Head/Face: Normocephalic, atraumatic. 07:29 Back: No spinal tenderness. No costovertebral tenderness. Full range of motion. Skin: Warm, dry with normal turgor. Normal color with no rashes, no lesions, and no evidence of cellulitis. MS/ Extremity: Pulses equal, no cyanosis. Neurovascular intact. Full, normal range of motion. 07:29 Eyes: Exam is negative for acute changes, Extraocular movements: no acute changes, Conjunctiva: no acute changes, no injection. 07:29 ENT: Mouth: Lips: normal, Oral mucosa: normal, pink and intact, moist. 07:29 Neck: ROM/movement: is normal, is supple, without pain. 07:29 Cardiovascular: Rate: normal, Rhythm: regular, Pulses: no pulse deficits are appreciated, Edema: is not appreciated. 07:29 Respiratory: Exam negative for acute changes, respiratory distress, shortness of breath, Breath sounds: are clear throughout. 07:29 Abdomen/GI: Inspection: abdomen appears normal, Palpation: abdomen is soft and non-tender, in all quadrants. 07:29 Neuro: Orientation: is normal, Mentation: is normal, Motor: is normal, moves all fours. 07:29 Psych: Behavior/mood is cooperative, Affect is animated, Oriented to person, place, time, Patient having thoughts of suicide. Plan for suicide is Overdose 07 00:21 ECG was reviewed by the Attending Physician. cp Vital Signs: 11/15 06:57 BP 131 / 96; Pulse 147; Resp 20; Temp 97.1; Pulse Ox 99% on R/A; Height 5 ft. 11 in. em (180.34 cm); 07:30 BP 121 / 73; Pulse 76; Resp 19; Pulse Ox 98% ; jl7 08:30 BP 118 / 87; Pulse 92; Resp 19; Pulse Ox 98% ; jl7 09:11 BP 119 / 63; Pulse 82; Resp 15; Pulse Ox 98% ; jl7 09:30 BP 95 / 64; Pulse 90; Resp 15; Pulse Ox 100% ; jl7 10:00 BP 105 / 65; Pulse 82; Resp 15; Pulse Ox 100% ; jl7 10:44 BP 94 / 67; Pulse 89; Resp 15; Pulse Ox 98% ; jl7 12:00 BP 104 / 80; Pulse 80; Resp 15; Pulse Ox 97% ; jl7 13:30 BP 108 / 85; Pulse 81; Resp 15; Pulse Ox 96% ; jl7 14:30 BP 109 / 79; Pulse 79; Resp 16; Pulse Ox 96% ; jl7 15:30 BP 106 / 79; Pulse 79; Resp 14; Pulse Ox 96% ; jl7 16:38 BP 106 / 79; Pulse 77; Resp 15; Pulse Ox 99% ; jl7 19:45 BP 109 / 72; Pulse 66; Resp 16 S; Pulse Ox 97% on R/A; ad5 07/ 01:54 BP 137 / 88; Pulse 73; Resp 16 S; Pulse Ox 96% on R/A; ad5 05:45 BP 113 / 83; Pulse 71; Resp 18 S; Pulse Ox 98% on R/A; ad5 07:20 BP 118 / 80; Pulse 72; Resp 15; Temp 98.4(O); Pulse Ox 97% on R/A; tw2 MDM: 11/15 07:11 Patient medically screened. pm1 07:29 Data interpreted: Pulse oximetry: on room air is 98 %. Interpretation: normal. pm1 11:46 Data reviewed: vital signs. pm1 12:44 Counseling: I had a detailed discussion with the patient and/or guardian regarding: the pm1 historical points, exam findings, and any diagnostic results supporting the discharge/admit diagnosis, lab results, the need to transfer to another facility, [facility] does not immediately have the required specialist. 11/16 13:09 ED course: Patient cooperative throughout his visit until he heard a child crying in pm1 ER. He wanted to leave the ER because the crying was too much for him. After the child left the ER, the patient is calm and cooperative and wants to go to psychiatric facility . 14:05 Physician consultation: Sondra Mayorga was contacted at 14:00, regarding regarding pm1 transfer, patient's condition, and will see patient. 11/15 07:12 Order name: Acetaminophen pm1 11/15 07:12 Order name: Basic Metabolic Panel; Complete Time: 08:33 pm1 11/15 07:12 Order name: CBC with Diff; Complete Time: 08:33 pm1 11/15 07:12 Order name: ETOH Level; Complete Time: 08:33 pm1 11/15 07:12 Order name: Hepatic Function; Complete Time: 08:33 pm1 11/15 07:12 Order name: PT-INR; Complete Time: 08:33 pm1 11/15 07:12 Order name: Ptt, Activated; Complete Time: 08:33 pm1 11/15 07:12 Order name: Salicylate; Complete Time: 11:17 pm1 11/15 07:12 Order name: Urine Drug Screen; Complete Time: 11:17 pm1 11/15 07:12 Order name: Acetaminophen Level; Complete Time: 08:33 EDMS 11/15 08:31 Order name: Urine Dipstick-Ancillary; Complete Time: 08:33 EDMS 11/15 10:32 Order name: SARS-COV-2 RT PCR; Complete Time: 11:17 EDMS 11/15 07:12 Order name: EKG; Complete Time: 07:13 pm1 11/15 07:12 Order name: EKG - Nurse/Tech; Complete Time: 08:26 pm1 11/15 07:12 Order name: IV Saline Lock; Complete Time: 07:56 pm1 11/15 07:12 Order name: Labs collected and sent; Complete Time: 07:56 pm11/15 07:12 Order name: Suicide Precautions; Complete Time: 07:56 pm1 11/15 07:12 Order name: Suicide Screening ([place]); Complete Time: 07:56 pm11/15 07:12 Order name: Urine Dipstick-Ancillary (obtain specimen); Complete Time: 08:26 pm1 11/15 07:12 Order name: Misc. Order: Contact poison control; Complete Time: 07:56 pm11/15 07:23 Order name: Seizure Precautions; Complete Time: 07:56 pm11/15 16:35 Order name: Diet Finger Food; Complete Time: 16:36 jl7 11/16 10:09 Order name: EKG Electrocardiogram EDMS EC:21 Rate is 78 beats/min. Rhythm is regular. ME interval is normal. QRS interval is normal. cp QT interval is normal. T waves are Inverted in lead aVR. Interpreted by me. Reviewed by me. Administered Medications: 11/15 08:30 Drug: NS 0.9% 1000 ml Route: IV; Rate: 1000 ml; Site: right antecubital; [facility] 09:30 Follow up: Response: No adverse reaction; IV Status: Completed infusion; IV Intake: jl7 1000ml 21:30 Drug: Sodium Bicarbonate 1 amp Route: IVP; Site: right antecubital; jb4 11/16 01:53 Follow up: Response: No adverse reaction ad5 Disposition Summary: 11/15/20 12:47 Transfer Ordered Transfer Location: Psych Facility pm1 Reason: Specialty pm1 Condition: Stable pm1 Problem: new pm1 Symptoms: have improved pm1 Accepting Physician: (11/16/20 15:37) tw2 Diagnosis - Suicidal ideations pm1 - Overdose on prescription medication pm1 - Other stimulant abuse - methamphetamine abuse pm1 - Cannabis abuse pm1 - Intentional overdose on prescription medication pm1 Forms: - Medication Reconciliation Form pm1 - SBAR form pm1 Addendum: 11/18/2020 19:05 Co-signature as Attending Physician, Eric pandya Signatures: Dispatcher [employer] EDTN Eric Merlos MD MD pkl Munoz, Edgar, RN RN Mela Parrish, RN RN aa5 Juan F Mcgrath PA PA cp Rob Adorno, SODA FLAKER SODA FLAKER pm1 Isabel Fuentes RN RN tw2 Ochoa Montilla RN RN jb4 Jose Guadalupe Bronosn RN RN jl7 Rick Elias ad5 Corrections: (The following items were deleted from the chart) 11/15 09:35 07:54 CORONAVIRUS+BRZ ordered. [facility] EDTN 12:47 12:47 pm1 pm1 11/16 15:37 11/15 12:47 pm1 tw2
--- NOTE | 2020-11-15 12:48 | ER ---
Nurse's Notes [facility] Name: Jos Renner Age: 44 yrs Sex: Male : 1975 Arrival Date: 11/15/2020 Time: 06:34 Bed 16 Private MD: Diagnosis: Suicidal ideations;Overdose on prescription medication;Other stimulant abuse-methamphetamine abuse;Cannabis abuse;Intentional overdose on prescription medication Presentation: 11/15 06:57 Chief complaint: Patient states: took 8-9 Seroquel pills after being dropped off by em mother, reports wanting to kill himself due to not finding spirituality, pt seem restless/agitated in triage. Coronavirus screen: Client denies travel out of the [place] in the last 14 days. Ebola Screen: Patient negative for fever greater than or equal to 101.5 degrees Fahrenheit, and additional compatible Ebola Virus Disease symptoms Patient denies exposure to infectious person. Patient denies travel to an Ebola-affected area in the 21 days before illness onset. No symptoms or risks identified at this time. Initial Sepsis Screen: Does the patient meet any 2 criteria? No. Patient's initial sepsis screen is negative. Does the patient have a suspected source of infection? No. Patient's initial sepsis screen is negative. Risk Assessment: Do you want to hurt yourself or someone else? Patient reports no desire to harm self or others. Onset of symptoms was November 15, 2020. 06:57 Method Of Arrival: Ambulatory em 06:57 Acuity: CHILO 2 em Historical: - Allergies: 06:59 No Known Allergies; em - Home Meds: 06:59 Seroquel Oral [Active]; em - PMHx: 06:59 insomnia; em 11/16 13:11 Schizophrenia; aa5 - Immunization history:: Adult Immunizations unknown. - Social history:: Smoking status: unknown. Screenin/19 07:00 Abuse screen: Denies threats or abuse. Denies injuries from another. Nutritional jl7 screening: No deficits noted. Tuberculosis screening: No symptoms or risk factors identified. Fall Risk IV access (20 points). Total Cesar Fall Scale indicates No Risk (0-24 pts). Assessment: 07:04 Reassessment: spoke with mother, mother reports pt taking 8-9 200 mg pills at 0500 this em morning, has a hx of schizophrenia, seems to want help due to 5-6 voices in his head, just wants to stop hearing there, Kasandra [phone]. 07:11 Reassessment: spoke with Florentino at poison control, observe for combative or confusing em after 2-3 hours, respiratory depression, possible seizures or sedation, treatment with Valium or Ativan, possible urinary retention, have Laird inserted if needed, have initial EKG and another EKG 4 hours out, observe for prolong QT, treatment mag. sulfate, have tox labs drawn, monitor for 6 hours to decide treatment and can be medically cleared. 08:15 Reassessment: Pt laying in bed with eyes closed, respirations even and unlabored, no jl7 signs of distress noted. 09:15 Reassessment: Patient appears in no apparent distress at this time. No changes from jl7 previously documented assessment. 10:00 Reassessment: Patient appears in no apparent distress at this time. No changes from jl7 previously documented assessment. 11:00 Reassessment: Patient appears in no apparent distress at this time. No changes from jl7 previously documented assessment. 12:00 Reassessment: Patient appears in no apparent distress at this time. No changes from jl7 previously documented assessment. 13:00 Reassessment: Patient appears in no apparent distress at this time. No changes from jl7 previously documented assessment. 14:00 Reassessment: Patient appears in no apparent distress at this time. No changes from jl7 previously documented assessment. 15:00 Reassessment: Patient appears in no apparent distress at this time. No changes from jl7 previously documented assessment. 16:00 Reassessment: Patient appears in no apparent distress at this time. No changes from jl7 previously documented assessment. 19:12 Reassessment: Patient appears in no apparent distress at this time. Pt resting ad5 comfortably in ED stretcher, appears asleep. Resp even/unlabored. VSS. Bed remains low and locked, bedrails x 2. NAD noted, will continue to monitor. 20:00 Reassessment: Patient appears in no apparent distress at this time. No changes from jb4 previously documented assessment. 20:57 Reassessment: Patient appears in no apparent distress at this time. No changes from jb4 previously documented assessment. 21:10 Reassessment: Poison control recommends 1-2 amps of Sodium Bicarb to reduce QRS jb4 interval to under 100 milliseconds. Provider notified, see MAR for orders. 22:15 Reassessment: Patient appears in no apparent distress at this time. No changes from ad5 previously documented assessment. Patient and/or family updated on plan of care and expected duration. Pain level reassessed. 23:00 Reassessment: Patient appears in no apparent distress at this time. Patient and/or jb4 family updated on plan of care and expected duration. Pain level reassessed. Patient is alert, oriented x 3, equal unlabored respirations, skin warm/dry/pink. 11/16 00:00 Reassessment: Patient appears in no apparent distress at this time. Patient and/or jb4 family updated on plan of care and expected duration. Pain level reassessed. Patient is alert, oriented x 3, equal unlabored respirations, skin warm/dry/pink. 01:00 Reassessment: Patient appears in no apparent distress at this time. No changes from ad5 previously documented assessment. Patient and/or family updated on plan of care and expected duration. Pain level reassessed. 02:00 Reassessment: Patient appears in no apparent distress at this time. No changes from ad5 previously documented assessment. Pt resting comfortably in ED stretcher, appears asleep. Resp even/unlabored. Bed remains low and locked, bedrails x 2. Will continue to monitor. 03:00 Reassessment: Patient appears in no apparent distress at this time. No changes from ad5 previously documented assessment. 04:00 Reassessment: Pt resting comfortably in ED stretcher, resp with ease. NAD noted, will ad5 continue to monitor. 05:00 Reassessment: Patient appears in no apparent distress at this time. No changes from ad5 previously documented assessment. 05:45 Reassessment: MD at bedside for reassessment. Pt reports continued hallucinations and ad5 thoughts of self-harm. Pt denies new or worsening c/o. Denies needs at this time. Pt remains calm and cooperative with staff. NAD noted, will continue to monitor. 07:00 Reassessment: pt has sitter that will remain at bedside throughout shift. pt has no tw2 visitors at this time. pt resting quietly. General: Appears in no apparent distress. Behavior is calm, cooperative, quiet. Pain: Denies pain. Neuro: Level of Consciousness is awake, alert, obeys commands, Oriented to person, place, time, situation. Cardiovascular: Patient's skin is warm and dry. Respiratory: Airway is patent Respiratory effort is even, unlabored, Respiratory pattern is regular, symmetrical. GI: No signs and/or symptoms were reported involving the gastrointestinal system. : No signs and/or symptoms were reported regarding the genitourinary system. EENT: No signs and/or symptoms were reported regarding the EENT system. Derm: No signs and/or symptoms reported regarding the dermatologic system. Musculoskeletal: Range of motion: intact in all extremities. 07:20 Reassessment: Patient appears in no apparent distress at this time. Patient and/or tw2 family updated on plan of care and expected duration. Pain level reassessed. Patient is alert, oriented x 3, equal unlabored respirations, skin warm/dry/pink. pt requesting sandwich at this time, breakfast to be delivered soon, sandwich, chips, and drink given to pt. 09:59 Reassessment: Aishwarya with [facility] called and states pt remains on their waiting aa5 list, possible bed available today. . 13:17 Reassessment: Report given to Madeleine nurse with [facility]. . aa5 15:10 Reassessment: pt pacing around in ER room at this time. tw2 15:18 Reassessment: Adarsh Combs called as pt leaving ER states "who is going to stop me call tw2 the police". pt left ED department. 15:29 Reassessment: [employer] at bedside at this time. pt pacing around room, talking loud to [employer] tw2 at this time. 15:33 Reassessment: [facility] at bedside at this time for transport. pt agreeable tw2 and leaving with [facility] at this time.. Overdose: 11/15 07:00 Newborn Suicide Severity Screening: "In the past month, have you wished you were jl7 or wished you could go to sleep and not wake up?" Patient responds "yes." Based off client's responses, additional C-SSRS screening questions required. "In the past month, have you actually had any thoughts of killing yourself?" Patient responds "yes." Based off client's responses, additional C-SSRS screening questions required. "In your lifetime, have you ever done anything, started to do anything, or prepared to do anything to end your life?" Patient responds "yes." Patient reports suicidal intent within 3 past months. Patient reports suicidal intent occurred greater than 3 months prior. Patient took 8-9 Seroquel. Overdose occurred 2-3 hours ago. Vital Signs: 06:57 BP 131 / 96; Pulse 147; Resp 20; Temp 97.1; Pulse Ox 99% on R/A; Height 5 ft. 11 in. em (180.34 cm); 07:30 BP 121 / 73; Pulse 76; Resp 19; Pulse Ox 98% ; jl7 08:30 BP 118 / 87; Pulse 92; Resp 19; Pulse Ox 98% ; jl7 09:11 BP 119 / 63; Pulse 82; Resp 15; Pulse Ox 98% ; jl7 09:30 BP 95 / 64; Pulse 90; Resp 15; Pulse Ox 100% ; jl7 10:00 BP 105 / 65; Pulse 82; Resp 15; Pulse Ox 100% ; jl7 10:44 BP 94 / 67; Pulse 89; Resp 15; Pulse Ox 98% ; jl7 12:00 BP 104 / 80; Pulse 80; Resp 15; Pulse Ox 97% ; jl7 13:30 BP 108 / 85; Pulse 81; Resp 15; Pulse Ox 96% ; jl7 14:30 BP 109 / 79; Pulse 79; Resp 16; Pulse Ox 96% ; jl7 15:30 BP 106 / 79; Pulse 79; Resp 14; Pulse Ox 96% ; jl7 16:38 BP 106 / 79; Pulse 77; Resp 15; Pulse Ox 99% ; jl7 19:45 BP 109 / 72; Pulse 66; Resp 16 S; Pulse Ox 97% on R/A; ad5 07/20 01:54 BP 137 / 88; Pulse 73; Resp 16 S; Pulse Ox 96% on R/A; ad5 05:45 BP 113 / 83; Pulse 71; Resp 18 S; Pulse Ox 98% on R/A; ad5 07:20 BP 118 / 80; Pulse 72; Resp 15; Temp 98.4(O); Pulse Ox 97% on R/A; tw2 ED Course: 11/15 06:34 Patient arrived in ED. ag3 06:59 Triage completed. em 06:59 Arm band placed on. em 07:11 Rob Adorno NP is PHCP. pm1 07:11 Eric Merlos MD is Attending Physician. pm1 07:11 Jose Guadalupe Bronson, RN is Primary Nurse. jl7 09:17 Patient has correct armband on for positive identification. Placed in gown. Bed in low mh5 position. Warm blanket given. ekg monitor tech on. Pulse ox on. NIBP on. 09:17 Initial lab(s) drawn, by nm, sent to lab. Urine collected: clean catch specimen, clear, mh5 EKG done, by ED staff, reviewed by Rob Adorno NP COVID swab sent to lab. Inserted saline lock: 20 gauge in right antecubital area, using aseptic technique. Blood collected. 09:18 Acetaminophen Sent. mh5 09:18 Urine Drug Screen Sent. mh5 10:06 Safety checks: Items removed: yes. Door open/sign placed on door: yes. Family/friend [facility] present: no. Sitter present: Yes. 12:53 [place] [facility], [facility], [facility], [facility], [facility] and [facility]. 19:08 PHCP role handed off by Rob Adorno NP cp 19:08 Juan F Mcgrath PA is PHCP. cp 11/16 05:29 Refaxed pt clinicals to [facility], [facility], [facility] of [facility], [facility], [facility], and [facility]. 06:14 [facility] called and stated they have no beds available. tt3 07:33 Primary Nurse role handed off by Jose Guadalupe Bronson, RN tw2 07:33 Isabel Fuentes, SHERMAN is Primary Nurse. tw2 11:33 IV discontinued, intact, bleeding controlled, No redness/swelling at site. pt pulled iv tw2 out at this time, as he was leaving ER, security at bedside at this time. 11:37 [facility]. mt 12:08 [facility] arrived to complete an JAMES. mt 12:22 PHCP role handed off by Juan F Mcgrath PA pm1 12:22 Rob Adorno NP is PHCP. pm1 15:36 No provider procedures requiring assistance completed. tw2 Administered Medications: 11/15 08:30 Drug: NS 0.9% 1000 ml Route: IV; Rate: 1000 ml; Site: right antecubital; jl7 09:30 Follow up: Response: No adverse reaction; IV Status: Completed infusion; IV Intake: jl7 1000ml 21:30 Drug: Sodium Bicarbonate 1 amp Route: IVP; Site: right antecubital; jb4 11/16 01:53 Follow up: Response: No adverse reaction ad5 Intake: 11/15 09:30 IV: 1000ml; Total: 1000ml. jl7 Outcome: 12:47 ER care complete, transfer ordered by MD. pm1 11/16 15:36 Transferred tw2 Condition: stable Instructed on the need for transfer. 15:37 Patient left the ED. tw2 Signatures: Kingston Rodriguez, RN RN Chuck, Mela, RN RN aa5 Juan F Mcgrath PA PA cp Rob Adorno, AUT[employer] SERVICE MECHANIC [employer] SERVICE MECHANIC pm1 Isabel Fuentes RN RN tw2 Ochoa Montilla RN RN jb Yana Pierson [facility] Jose Guadalupe Bronson RN RN jl7 Agnes Morris mt, Alice ag3 Brandee, Roby tt3 Rick Elias ad5 Corrections: (The following items were deleted from the chart) 11/15 07:08 07:04 Reassessment: spoke with mother, mother reports pt taking 8-9 200 mg pills at em 0500 this morning, seems to want help due to 5-6 voices in his head, just wants to stop hearing there, Kasandra [phone] em 07:11 07:08 Reassessment: em em 09:35 09:18 CORONAVIRUS+ drawn and sent. [address] 11/16 10:02 07:20 Reassessment: Patient appears in no apparent distress at this time. Patient tw2 and/or family updated on plan of care and expected duration. Pain level reassessed. Patient is alert, oriented x 3, equal unlabored respirations, skin warm/dry/pink. pt requesting sandwich at this time, breakfast to be delivered soon, sandwich, chips, and drink given to pt. tw2
--- NOTE | 2020-11-16 07:29 | EKG ---
Test Date: 2020-11-15 Test Time: 08:12:57 Director [facility]: JUSTEN MEASUREMENT RESULTS: Intervals: Rate: 80 NM: 132 QRSD: 106 QT: 362 QTc: 417 [place]: P: 76 NM: 132 QRS: 80 T: 60 INTERPRETIVE STATEMENTS: Normal sinus rhythm Normal ECG Compared to ECG 10/18/2020 13:25:27 No significant changes Electronically Signed On 11-16-20 07:27:54 CDT by Foster Owuus
--- NOTE | 2020-11-16 11:47 | EKG ---
Test Date: 2020-11-16 Test Time: 00:11:03 Quality Assurance Director: JUAN CARLOS MEASUREMENT RESULTS: Intervals: Rate: 78 UT: 144 QRSD: 100 QT: 376 QTc: 428 [place]: P: 77 UT: 144 QRS: 83 T: 64 INTERPRETIVE STATEMENTS: Normal sinus rhythm Normal ECG Compared to ECG 11/15/2020 08:12:57 No significant changes Electronically Signed On 11-16-20 11:46:06 CDT by Foster Owusu
[2020-11-16 16:15] VITALS: BP 118/80; TEMP 98.4; O2SAT 97
== END 2020-11-16 15:37 ==
LOC: ER 06:31
DX: R45.851 Suicidal ideations (principal); T43.592A Poisoning by other antipsychotics and neuroleptics, intentional self-harm, initial encounter; F15.10 Other stimulant abuse, uncomplicated; F12.10 Cannabis abuse, uncomplicated; F20.9 Schizophrenia, unspecified; Z20.822 Contact with and (suspected) exposure to COVID-19
CPT/HCPCS: 36415; 80048; 80076; 80307; 80320; 80329; 81003; 85025; 85610; 85730; 93005; 96361; 96374; 99285; J7030; U0003